=== PATIENT | male | born 1995 | race African-American/Black ===

== ENCOUNTER 2016-11-20 02:08 | Emergency (ER) | payer MEDICAID ==
[~2016-11-20] VITALS: Ht 185.4 cm; Wt 86.2 kg
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
[2016-11-20 02:30] LABS: APPEARANCE,URINE CLEAR (CLEAR); BILIRUBIN,URINE NEGATIVE (NEGATIVE); BLOOD, URINE NEGATIVE Ery/uL (NEGATIVE); COLOR,URINE YELLOW (YELLOW); KETONES,URINE NEGATIVE (NEGATIVE); LEUKOCYTE ESTERASE ,URINE TRACE (NEGATIVE); NITRITE, URINE NEGATIVE (NEGATIVE); PROTEIN,URINE NEGATIVE (NEGATIVE); UGLUCOSE NEGATIVE (NEGATIVE); UROBILINOGEN,URINE 0.2 EU/dL (0.2)
[2016-11-20 02:35] LABS: BACTERIA,URINE None seen /HPF (None Seen); RBC,URINE 0-2 /HPF (0-2); SQUAMOUS EPITHELIAL CELL,UR Few /HPF (None Seen)
[2016-11-20] MEDS ORDERED: METRONIDAZOLE 500 MG TABLET ONE (02:36)
[2016-11-20] MEDS ORDERED: CEFTRIAXONE 500 MG VIAL ONE (02:37)
[2016-11-20] MEDS ORDERED: AZITHROMYCIN 250 MG TABLET ONE (02:37)
[2016-11-20] MEDS ORDERED: LIDOCAINE /MPF 1% VIAL 5 ML VIAL ONE (02:37)
[2016-11-20] MEDS: CEFTRIAXONE 500 MG VIAL IM ONE (02:53)
[2016-11-20] MEDS: METRONIDAZOLE 500 MG TABLET PO ONE (02:54)
[2016-11-20] MEDS: AZITHROMYCIN 250 MG TABLET PO ONE (02:54)
[2016-11-20 03:11] VITALS: BP 138/84
== END 2016-11-20 03:11 | disposition home or self-care (01) ==
LOC: ER 02:13
DX: Z20.2 Contact with and (suspected) exposure to infections with a predominantly sexual mode of transmission (principal); R36.9 Urethral discharge, unspecified
CPT/HCPCS: 81000-TC; 87086-TC; 87491; 87591; A4606; J0696; J3490; Z7610

== ENCOUNTER 2017-06-17 21:24 | Emergency (ER) | payer SELFPAY ==
[~2017-06-17] VITALS: Ht 185.4 cm; Wt 93.0 kg
[2017-06-17 21:27] VITALS: BP 149/91
[2017-06-17] MEDS ORDERED: CEFTRIAXONE 500 MG VIAL ONE (21:44)
[2017-06-17] MEDS ORDERED: LIDOCAINE /MPF 1% VIAL 5 ML VIAL ONE (21:44)
[2017-06-17] MEDS ORDERED: AZITHROMYCIN 250 MG TABLET ONE (21:45)
[2017-06-17 21:57] LABS: APPEARANCE,URINE CLEAR (CLEAR); BILIRUBIN,URINE NEGATIVE (NEGATIVE); BLOOD, URINE NEGATIVE Ery/uL (NEGATIVE); COLOR,URINE YELLOW (YELLOW); KETONES,URINE NEGATIVE (NEGATIVE); LEUKOCYTE ESTERASE ,URINE NEGATIVE (NEGATIVE); NITRITE, URINE NEGATIVE (NEGATIVE); PROTEIN,URINE NEGATIVE (NEGATIVE); UGLUCOSE NEGATIVE (NEGATIVE); UROBILINOGEN,URINE 0.2 EU/dL (0.2)
--- NOTE | 2017-06-17 22:25 | NUR ---
NO REACTION NOTED. PT D/C'D HOME.
[2017-06-17] MEDS ORDERED: CEFTRIAXONE 500 MG VIAL IM ONE (22:30)
[2017-06-17] MEDS ORDERED: AZITHROMYCIN 250 MG TABLET PO ONE (22:30)
== END 2017-06-17 22:27 | disposition home or self-care (01) ==
LOC: ER 21:30
DX: A63.8 Other specified predominantly sexually transmitted diseases (principal)
CPT/HCPCS: 81000-TC; 87491; 87591; A4606; J0696; J3490; Z7610